=== PATIENT | male | born 1950 | race Caucasian/White ===

== ENCOUNTER → 2017-01-02 | Day surgery (SDC) | payer OTHER ==
[~2017-01-02] MED LIST: COREG12.5 M1 PO; HYDROCODONE/APA1 T16 PO; LIPITOR20 MG PO; LISINOPRIL10 MG PO; LYRICA PO
--- NOTE | ~2017-01-02 | EKG ---
PATIENT: MADI YOUNG UNIT #: [id number] Ventricular Rate: 69 BPM Atrial Rate: 69 BPM P-R Interval: 164 ms QRS Duration: 106 ms Q-T Interval: 410 ms QTC Calculation(Bezet): 439 ms P [place]: 54 degrees Calculated R [place]: 10 degrees Calculated T [place]: 36 degrees Diagnosis Line: Normal sinus rhythm Diagnosis Line: Normal ECG Diagnosis Line: No previous ECGs available Diagnosis Line: Confirmed by CORBIN ROBLES MD ([id number]) on 01/03/2017 Diagnosis Line: 9:18:28 AM INTERPRETING MD: TRAVIS PATEL
--- NOTE | ~2017-01-02 | CR301 ---
[facility] A Service of [facility] & [facility] RADIOLOGY TEXT RESULTS PATIENT: MADI YOUNG LOCATION: [facility] : 50 UNIT #: [id number] AGE: [address]: Kofi Brothers MD SEX: M ORDER DR: [id number] [facility] [address] [place], [place] [address] [id number] O MR#: [id number] Acc #: [id number] NAME: MADI YOUNG : 1950 SEX: M STUDY DATE/TIME: 01/02/2017 8:13 UNIT: [facility] ROOM: STUDY DESCRIPTION: CR Fluoro Guide NDL Cath Spine Attending Physician: Kofi Brothers M.D. Ordering Physician: Kofi Brothers M.D. Primary Care Physician: Justin Bundy M.D. MEDICAL IMAGING REPORT This report is preliminary unless electronic signature is present EXAM Lumbar spine from the operating room HISTORY Pain pump insertion. TECHNIQUE 2 spot films were obtained over the lower thoracic and upper lumbar spine documenting needle placement for pain pump insertion. Fluoroscopy time documented 14 seconds. Please see the operative report for full details of the procedure. Dictated by... Piotr Maxwell M.D. THIS IS AN ELECTRONICALLY VERIFIED REPORT Piotr Maxwell M.D. at 01/03/2017 10:45 AM Beka TD: 01/03/2017 08:33 JOB #: [id number] MEDICAL IMAGING REPORT Page 1 of 1 COPY
--- NOTE | ~2017-01-02 | OR ---
Unit #: [id number] #: [id number] Patient: MADI YOUNG [id number] [address] [place], [place] [address] [id number] O MR#: [id number] NAME: MADI YOUNG ROOM: Date of Procedure: 01/02/2017 Admission Date: 01/02/2017 Surgeon: Kofi Brothers M.D. : 1950 Attending Physician: Kofi Brothers M.D. Primary Care Physician: Justin Bundy M.D. OPERATIVE REPORT PREOPERATIVE DIAGNOSIS Malfunction of implanted pain pump Codman. POSTOPERATIVE DIAGNOSIS Malfunction of implanted pain pump Codman. PROCEDURES PERFORMED 1. Explantation of intrathecal pain pump Codman 3000. 2. Explantation of spinal catheter. 3. Implantation of SynchroMed II intrathecal pain pump. 4. Implantation of Ascenda catheter intrathecally. 5. Fluoroscopy. 6. Physician filling a pump. SURGICAL INDICATION AND RATIONALE Mr. 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 The patient did have an implanted pump placed about 24 months ago. However, 4 months ago, the patient had accidentally fallen and unknown to him. The catheter was explanted and by the time, the patient come to see me, his pump had gone empty for well over 2 months. A request was made through the patient's insurance company and through multiple appeals, we were able to get the insurance company to allow us to remove with existing Codman 3000 pump system and implant a SynchroMed Medtronic intrathecal pump in its place. The patient has had a cardiac evaluation and no contraindications were noted. The patient also has undergone an extensive education process regarding the risks, benefits, and alternative available regarding this intrathecal pump made by [employer]. I also had in detailed discussion with the patient regarding the consent decree and all his questions were answered regarding the consent decree to his satisfaction. The patient also underwent an eduction process with Elba Neely who is the [employer] sales solutions representative in particular regarding the consent decree and once again, all the patient's questions were answered in language that was understandable by the patient. A teach-back method was used to ascertain the patient's understanding both myself and by Elba Neely. DESCRIPTION OF PROCEDURE After obtaining full informed consent and after discussion with the patient possible complications including infection, bleeding, paralysis, mild headaches, , and other perioperative complications were Unit #: [id number] #: [id number] Patient: MADI YOUNG discussed with the patient and consent was obtained in front of nurse, Lissette. The patient was then taken back to the operating room where general anesthesia was induced after standard monitors are placed. The patient was then positioned in the left lateral decubitus position under the guidance of the anesthesiologist. The patient was then prepped and draped in the usual fashion. I first anesthetized the pump reservoir, which was on the right side of his abdomen using a mixture of 1% lidocaine with epinephrine and 0.5% Marcaine without epinephrine. Once this was done, I made an incision using a #9 blade and without much difficulty, I was able to reach the intrathecal pump and released the 4 anchors and delivered the pump out of the pocket. This pocket was copiously irrigated with irrigant. I then anesthetized the skin over the lumbar area and once again using the same methodology, I made an incision and I could clearly identify the catheter explanted in the paravertebral gutter with tip intact. The entire system was removed and this incision was copiously irrigated with irrigant. I then used a 17-gauge Tuohy needle to access the intrathecal space and I achieved this at first pass with clear flow of CSF. I then navigated an [employer] intrathecal catheter through the Tuohy needle to reach the mid body of T8, which was done under live fluoroscopic view. Once this was done, the Tuohy needle along with stylet were removed and I used a special anchoring device to anchor this catheter through the interspinous ligament. This was then sutured to the underlying tissue using 3-0 Prolene sutures. I then used the tunneling device to tunnel this catheter into the abdominal pocket. This catheter was then cut to size and then I used a special adapter to connect this catheter to another piece of catheter, which would then be connected to the SynchroMed II pump. This pump was prefilled by me prior to connecting this catheter with hydromorphone at a concentration of 5 mg/mL totalling 20 mL. Once the connections were secured, I aspirated the sideport using a 24-gauge Arriaza needle and I was able to obtain clear CSF. This represents the intact nature of the intrathecal pump system. I then placed powdered vancomycin into the pocket and into the lumbar incision and placed the pump into the pocket and secured it using 3-0 Prolene sutures via the 4 anchors. The 2 incisions were carefully inspected and closed using interrupted 3-0 Vicryl sutures and the skin was reapproximated with austin. I placed a Telfa, Tegaderm dressing, and the patient was brought to the recovery room for neurological monitoring. PLAN OF CARE The patient's pump has been initiated at a daily dose of 0.3 mg per day of hydromorphone at 5 mg/mL. The patient was also given Patient Garden Worker to dose at 0.02 mg with the ability to have 2 activations. This means with maximum activations per day, the patient would receive 0.339 mg per day. The patient's [employer] Personal Garden Worker serial #[id number], the SynchroMed catheter [id number], and SynchroMed II pump #[id number]. The patient was discharged home neurologically intact with plans to return to my office in 7 days to have the austin removed. I have discussed the course of the surgery with the patient's family and they acknowledged understanding and the patient would like to proceed. Dictated by... Andrew Carvalho/ginette TD: 01/03/2017 00:23 Unit #: [id number] #: [id number] Patient: MADI YOUNG JOB #: [id number] OPERATIVE REPORT Page 1 of 1 X Kofi Brothers MD PROCEDURE OPERATIVE NOTE
[2017-01-02 08:01] LABS: BUN/CREATININE RATIO 14.73; CALCIUM SERUM 9.1 mg/dL (8.4-10.2); CREATININE SERUM 1.9 mg/dL (0.6-1.4); GLOM FILT RATE Estimated 37.9 mL/min (>60); POTASSIUM 5.1 mmol/L (3.5-5.1)
== END | disposition home or self-care (01) ==
LOC: CSUR 06:22
PROVIDERS: Specialist
DX: T85.610A Breakdown (mechanical) of cranial or spinal infusion catheter, initial encounter (principal); I10 Essential (primary) hypertension; E78.5 Hyperlipidemia, unspecified; I25.10 Atherosclerotic heart disease of native coronary artery without angina pectoris; I25.2 Old myocardial infarction; E11.9 Type 2 diabetes mellitus without complications; F17.210 Nicotine dependence, cigarettes, uncomplicated; Z87.442 Personal history of urinary calculi; Z88.8 Allergy status to other drugs, medicaments and biological substances; Z79.891 Long term (current) use of opiate analgesic; Z79.899 Other long term (current) drug therapy; Z90.49 Acquired absence of other specified parts of digestive tract; Z90.89 Acquired absence of other organs; Z98.890 Other specified postprocedural states
CPT/HCPCS: 77003; 80048; 82947; 93005; C1772; J0690; J1100; J1170; J2250; J2405; J3010; J3370